=== PATIENT | male | born 1985 | race Caucasian/White ===

== ENCOUNTER 2018-04-03 20:53 | Emergency (ER) | payer BC ==
[~2018-04-03] VITALS: Ht 172.7 cm; Wt 99.8 kg
[2018-04-03] MEDS ORDERED: HYDROCODONE/APAP 5MG-325MG TAB PO ONE ×2 (21:30→21:45)
--- NOTE | 2018-04-03 22:51 | Diagnostic Imaging Report ---
CT LUMBAR SPINE WITHOUT-HOPD HISTORY: Low back pain, history of L5-S1 disc herniation COMPARISON: None. TECHNIQUE: Axial CT images of the lumbar spine were obtained without contrast. Coronal and sagittal reconstructions obtained from the axial data. One or more of the following dose reduction techniques were used: Automated exposure control, adjustment of the mA and/or kV according to patient size, and/or utilization of iterative reconstruction technique. DISCUSSION: There are 5 nonrib-bearing lumbar vertebral bodies. Lumbar lordosis is slightly straightened. There is no significant scoliosis or subluxation. No fracture, compression deformity, or destructive osseous lesion is seen. No gross spinal canal mass is seen. The paravertebral and paraspinal soft tissues are unremarkable. Mild multilevel spondylotic changes are present. There are minimal degenerative changes in the bilateral sacroiliac joints L1-L2: No gross canal or foraminal stenosis. L2-L3: No gross canal or foraminal stenosis. L3-L4: No gross canal or foraminal stenosis. L4-L5: No gross canal or foraminal stenosis. L5-S1: There is mild retrolisthesis of L5 on S1. Mild bilateral foraminal stenoses due to disc bulge and facet arthrosis. No gross canal stenosis IMPRESSION: 1. No acute osseous abnormalities. 2. Mild multilevel spondylosis without gross canal stenosis. 3. Mild bilateral degenerative foraminal stenoses at L5-S1. Signed by: Dr. Baldev Adam M.D. on 04/03/2018 10:48 PM
== END 2018-04-03 23:15 | disposition home or self-care (01) ==
LOC: FSED 20:53
DX: M54.5 Low back pain (principal); M54.16 Radiculopathy, lumbar region
CPT/HCPCS: 72131